=== PATIENT | male | born 1990 | race African-American/Black ===

== ENCOUNTER 2022-01-10 06:38 | Emergency (ER) | payer OTHER, SELFPAY ==
--- NOTE | ~2022-01-10 | XR_ITS ---
EXAMINATION: XR CHEST CLINICAL INFORMATION: Left-sided chest pain. COMPARISON: None TECHNIQUE: AP view of the chest was obtained. FINDINGS: Normal appearance of the cardiomediastinal silhouette. No focal airspace opacities, pleural effusions, or pneumothorax. No acute osseous abnormalities. The visualized upper abdomen is within normal limits. XR/XR chest 1V IMPRESSION: No acute cardiopulmonary findings.
[2022-01-10 06:44] VITALS: BP 134/80; BP 164/105; PULSE 75; PULSE 85; RESP 18; TEMP 37.1; O2SAT 98; BMI 29.0
[2022-01-10 07:11] VITALS: BP 144/91; PULSE 68; RESP 15; TEMP 37.2; O2SAT 99
--- NOTE | 2022-01-10 08:11 | ECG_ITS ---
Test Reason : back pain Blood Pressure : / mmHG Vent. Rate : 063 BPM Atrial Rate : 063 BPM P-R Int : 136 ms QRS Dur : 074 ms QT Int : 398 ms P-R-T Axes : 023 042 -03 degrees QTc Int : 407 ms Normal sinus rhythm ST & T wave abnormality, consider inferior ischemia Abnormal ECG No previous ECGs available Referred By: Mitchell Dejesus Electronically Signed By:Dylan Soto
--- NOTE | 2022-01-10 08:12 | ED_ITS ---
HPI - Back Pain/Injury General Chief Complaint: Back Pain/Injury Stated Complaint: back pain, no injury Time Seen by Provider: 01/10/22 07:47 Source: patient Mode of arrival: EMS Limitations: no limitations History of Present Illness HPI Narrative: 31-year-old male who presents emergency department by ambulance for evaluation of sudden onset of severe back pain. The patient states that he works at a [employer] in [place]. He was sitting at a desk and his computer mouse fell to the floor. 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 He states that he had pain that radiated down both legs which she described as a tingling sensation which was brief and is since resolved. He denied any loss of bowel or bladder control. He states that any time he tries to move his pain is worse. His pain is currently 10/10. Patient states that he has known hypertension but does not have a primary care doctor prescribed antihypertensive medications. He states that yesterday he did experience left-sided chest pain which she describes as a sharp pain he points. He points to his left breast when asked to localize the pain. He states the pain was intermittent and last 5-10 minutes and then resolved, the patient's pain was moderate intensity. He had no other concerning associated symptoms such as lightheadedness, dizziness, neck, jaw, arm pain or back pain. He denied fever, chills, sore throat, cough, shortness of breath, dyspnea on exertion, nausea, vomiting, diarrhea, abdominal pain. He states he has had some slight rhinorrhea over the past several days. He denies using injection drugs. He does smoke marijuana. He also smokes a 3rd of a pack of cigarettes per day times 12 years. Related Data Previous Rx's Medication Instructions Recorded cyclobenzaprine 10 mg tablet 10 mg PO TID PRN #20 tab 01/10/22 lisinopril 10 mg tablet 10 mg PO DAILY 30 Days #30 tab 01/10/22 Allergies Allergy/AdvReac Type Severity Reaction Status Date / Time No Known Allergies Allergy Unverified 05/05/20 19:20 [No Known Allergies*] Review of Systems Review of Systems: Yes all other systems are reviewed and are negative [facility] Past Medical History [facility] Narrative: Past medical history: Hypertension-untreated, asthma. Past surgical history: None. Social history: The patient works out and [employer] in [place]. He smokes 1/3 pack of cigarettes per day times 12 years. He denies alcohol use. He does smoke marijuana. He denies injection drug use. Social History Social History Advance Directives: No Physical Exam Vital Signs: Vital Signs: Last Vital Signs Temp 98.3 F 01/10/22 10:55 Pulse 57 01/10/22 10:55 Resp 13 01/10/22 10:55 BP 141/84 H 01/10/22 10:55 Pulse Ox 99 01/10/22 10:55 BMI result Body Mass Index 29.0 Const: Other: Awake, alert, male patient, very pleasant and cooperative, answers all questions appropriately, he does not appear to be in distress if he is lying still but any movement gives him severe pain in his midback. General: cooperative and no acute distress Orientation/consciousness: oriented to person and oriented to place Limitations: no limitations HEENT: Head: Yes normal to inspection, Yes normocephalic and Yes atraumatic Ears: external ears normal General nose exam: Normal external nose present Face and sinus: Yes normal facial exam Mouth: Normal oral and palatal mucosa present Throat: Yes posterior oropharynx normal Eyes: General: appearance normal, both eyes and all related structures Pupils: Equal, round and reactive pupils present Neck: Neck: Yes normal visual inspection, Yes no lymphadenopathy, Yes trachea midline and Yes supple Chest: Chest palpation & inspection: normal inspection of the chest and normal palpation of entire chest wall Resp: Effort & Inspection: normal respiratory effort and able to speak in complete sentences Auscultation: clear to auscultation bilaterally Cardio: Rate: regular rate Rhythm: regular rhythm Heart sounds: S1 normal heart sound present, S2 normal heart sound present and no murmurs GI: Inspection: Yes normal to inspection Palpation (GI): Soft to palpation, nontender and no guarding Auscultation: normal bowel sounds Back/Spine/Pelvis: Other: The patient has spasm of the bilateral paraspinal muscles and his thoracic back area, there is no point tenderness over the vertebrae, he has negative straight leg raises bilaterally, there is no increased warmth or lesions to the skin of his back pain Skin: General skin exam: no rashes or lesions noted Neuro: General: oriented to person and oriented to place Cranial nerves: Yes CN's II-XII intact bilaterally and Yes Equal, round and reactive pupils present Cognition (Neuro): normal cognition Motor exam (neuro): 5/5 motor strength present throughout Extrem: General: Yes normal to inspection Psych: Appearance: grossly normal Speech and movement: Normal speech and movement present Affect: normal affect Attitude: cooperative Thought process: Normal thought process present Thought content: Normal thought jose nt present Course Course Course Narrative: 31-year-old male who presents emergency department for evaluation of sudden onset of back pain that occurred at work when he was bending 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 The patient's pain is 10/10. The patient's physical examination did reveal significant tenderness and spasm of his thoracic paraspinal muscles. The patient also noted left-sided chest pain that he had yesterday. He does have a history of hypertension which is untreated he is a smoker. I did order a laboratory evaluation to include CBC, CMP and EKG. I will also obtain a chest x-ray to rule out pneumothorax. The patient's vital signs did reveal an elevated blood pressure otherwise were unremarkable. The patient has not had any systemic signs infectious illness. He has not had inj ection drug user. At this time I think that his back pain is secondary to muscle spasm. He was treated with Toradol 30 mg IV and Flexeril 10 mg orally. 1112: The patient refused an IV so he was given Toradol 60 mg IM. He states that he is feeling slightly better he does not want any more pain medications at this time. The patient's 12 EKG did reveal inverted T-wave in lead 3 and AVF with no ST segment elevation or depression otherwise was unremarkable. Laboratory evaluation was unremarkable. Chest x-ray was normal. The patient was discharged home and advised to take Tylenol, ibuprofen and was prescribed Flexeril 1st pain. He was given printed and verbal instructions and discharged home. Patient states that he has known hypertension but has not been on medications and is requesting treatment therefore I did start him on lisinopril 10 mg once a day. MDM - Back Pain/Injury Lab Data Result diagrams: 01/10/22 08:37 05/25/22 08:37 Labs: Lab Results 01/10/22 01/10/22 Range/Units 08:37 08:37 WBC 7.5 (4.8-10.8) X10*3/uL RBC 5.51 (4.60-5.80) X10*6/uL Hgb 14.3 (14.0-18.0) g/dl Hct 46.1 (42.0-52.0) % MCV 83.7 (80.0-98.0) fL MCH 26.0 L (27.0-33.0) pg MCHC 31.0 (31.0-36.0) g/dl RDW 14.2 (11.0-16.0) % Plt Count 232 (160-400) X10*3/uL MPV 9.7 (9.4-12.4) fL Immature Gran % (Auto) 0.5 H (0.0-0.4) % Neut % (Auto) 50.1 (45-73) % Lymph % (Auto) 35.9 (20-40) % [place] % (Auto) 10.5 (2-11) % Eos % (Auto) 2.7 (0-4) % Baso % (Auto) 0.3 (0-2) % Lymph # (Auto) 2.7 (1.2-4.9) X10*3/uL [place] # (Auto) 0.8 (0.1-1.2) X10*3/uL Eos # (Auto) 0.2 (0.0-0.4) X10*3/uL Baso # (Auto) 0.0 (0.0-0.2) X10*3/uL Abs Immat Gran (auto) 0.04 H (0.00-0.03) X10*3/uL Absolute Neuts (auto) 3.8 (2.0-8.3) x10*3/uL Absolute Nucleated RBC 0.000 (0.0-0.012) X10*3/uL Nucleated RBC % (auto) 0.0 (0.0-0.2) /100WBC Sodium 142 (135-145) mmol/L Potassium 4.7 (3.3-5.1) mmol/L Chloride 107 (96-108) mmol/L Carbon Dioxide 28 (22-29) mmol/L Anion Gap 12 (12-20) BUN 7 L (9-16) mg/dL Creatinine 0.82 (0.5-1.4) mg/dL Estim Creat Clear Calc 159.2 Estimated GFR > 60 Random Glucose 112 (60-115) mg/dL Calcium 9.8 (8.4-10.2) mg/dL Total Bilirubin 0.4 (0.0-1.0) mg/dL AST 20 (5-37) U/L ALT 31 (0-40) U/L Alkaline Phosphatase 61 (39-117) U/L Total Protein 7.2 (6.5-8.0) g/dL Albumin 4.4 (3.5-5.0) g/dL Lipase 28 (8-78) U/L ECG Data Attestation: I personally reviewed and interpreted this ECG as follows: Interpretation: 0856: Normal sinus rhythm rate of 63, normal QRS duration, ME interval and QTC interval, inverted T-waves lead 3 and AVF, J-point elevation but no clear ST segment elevation, no PACs, no PVCs. No previous EKG for comparison. Discharge Plan Discharge Clinical Impression: Chest pain Qualifiers: Chest pain type: unspecified Qualified Code(s): R07.9 - Chest pain, unspecified Hypertension Qualifiers: Hypertension type: primary hypertension Qualified Code(s): I10 - Essential (primary) hypertension Acute thoracic myofascial strain Qualifiers: Encounter type: initial encounter Qualified Code(s): S29.019A - Strain of muscle and tendon of unspecified wall of thorax, initial encounter Patient Disposition: Home, Self-Care Instructions: Acute Low Back Pain (ED) Additional Instructions: Your blood work was normal. Your EKG did not reveal evidence for heart attack as the cause of your chest pain. Your chest x-ray was normal. The back pain is most likely caused by muscle strain and spasm of your back muscles. Take ibuprofen 200 mg pills, 3 pills every 6 hours as needed for pain. Take Tylenol (acetaminophen) 500 mg pills, 2 pills every 4-6 hours as needed for pain. Take Flexeril (cyclobenzaprine) 10 mg pills, 1 pill every 6-8 hours as needed for pain or spasm. This medication will make you sleepy. Do not drive or work while taking this medication. I am starting you on lisinopril 10 mg once a day. This is a medication for your high blood pressure Buy a blood pressure cough so that you can check your blood pressure at home. Check your blood pressures in the morning on Mondays, Wednesdays and Fridays. Write down these blood pressures so that you can review them with your doctor. Once we start a blood pressure medication it will take 4-6 weeks your blood pressure to get better and sometimes your doctor will need to increase your blood pressure medicine or add another blood pressure medicine to your treatment Please see the work note Call the doctor referral line to get a primary care doctor. Prescriptions: New cyclobenzaprine 10 mg tablet 10 mg PO TID PRN (Reason: muscle pain or spasm) Qty: 20 0RF lisinopril 10 mg tablet 10 mg PO DAILY 30 Days Qty: 30 0RF Stand Alone Forms: Work/School Release
[2022-01-10 08:32] VITALS: BP 161/102; PULSE 73; RESP 20; TEMP 36.9; O2SAT 99
[2022-01-10 08:41] LABS: MANUAL DIFF FLAG NO
[2022-01-10 08:42] LABS: Basophils Percent Auto 0.3 % (0-2); Eosinophils Absolute Auto 0.2 X10*3/uL (0.0-0.4); Eosinophils Percent Auto 2.7 % (0-4); Hematocrit 46.1 % (42.0-52.0); Hemoglobin 14.3 g/dl (14.0-18.0); Imm Gran Abs Auto 0.04 X10*3/uL (0.00-0.03); Imm Gran Pct Auto 0.5 % (0.0-0.4); Lymphocytes Absolute Auto 2.7 X10*3/uL (1.2-4.9); Lymphocytes Percent Auto 35.9 % (20-40); Mean Corpuscular Volume 83.7 fL (80.0-98.0); Mean Platelet Volume 9.7 fL (9.4-12.4); Monocytes Absolute Auto 0.8 X10*3/uL (0.1-1.2); Monocytes Percent Auto 10.5 % (2-11); Neutrophils Absolute Auto 3.8 x10*3/uL (2.0-8.3); Neutrophils Percent Auto 50.1 % (45-73); Platelet Count 232 X10*3/uL (160-400); Red Blood Count 5.51 X10*6/uL (4.60-5.80); Red Cell Distribution Width 14.2 % (11.0-16.0); White Blood Count 7.5 X10*3/uL (4.8-10.8)
[2022-01-10 09:08] LABS: Alanine Aminotransferase 31 U/L (0-40); Albumin Level 4.4 g/dL (3.5-5.0); Alkaline Phosphatase 61 U/L (39-117); Anion Gap 12 (12-20); Aspartate Amino Transferase 20 U/L (5-37); Bilirubin Total 0.4 mg/dL (0.0-1.0); Blood Urea Nitrogen 7 mg/dL (9-16); Calcium 9.8 mg/dL (8.4-10.2); Carbon Dioxide 28 mmol/L (22-29); Chloride 107 mmol/L (96-108); Creatinine Clr Calc Pharmacy 159.2; Estimated Glomerular Filt Rate > 60; Glucose Random 112 mg/dL (60-115); Lipase 28 U/L (8-78); Potassium 4.7 mmol/L (3.3-5.1); Sodium 142 mmol/L (135-145); Total Protein 7.2 g/dL (6.5-8.0)
[2022-01-10] MEDS: Cyclobenzaprine HCl 10 MG TABLET PO (09:13)
[2022-01-10] MEDS: Ketorolac Tromethamine 60 MG/2 ML VIAL IM (10:01)
[2022-01-10 10:55] VITALS: BP 141/84; PULSE 57; RESP 13; TEMP 36.8; O2SAT 99
== END 2022-01-10 11:40 | disposition home or self-care (01) ==
PROVIDERS: Emergency Provider Emergency Medicine Emergency Medical Services
DX: M54.50 Low back pain, unspecified (principal); I10 Essential (primary) hypertension; R07.9 Chest pain, unspecified; Z79.899 Other long term (current) drug therapy
CPT/HCPCS: 36415; 71045; 80053; 83690; 85025; 93005; 96372; 96374; 99283; 99284; J1885

== ENCOUNTER 2022-01-19 06:28 | Emergency (ER) | payer OTHER, SELFPAY ==
[2022-01-19 06:33] VITALS: PULSE 83; RESP 14; TEMP 37.1; O2SAT 98; BMI 28.3
--- NOTE | 2022-01-19 08:31 | ED.BACK ---
HPI - Back Pain/Injury General Chief Complaint: Back Pain/Injury Stated Complaint: severe back pain (fall 01/10) Time Seen by Provider: 01/19/22 07:58 Source: patient Mode of arrival: ambulatory History of Present Illness HPI Narrative: 31-year-old male without significant past medical history states he injured his back at work on 01/10 and was seen here in the ER given Flexeril but states that the pain really has not improved and he does like this way that the medication makes him feel. He denies any groin numbness or weakness/tingling/numbness into either lower extremity, denies any fevers or chills and denies any history of IVDA. Related Data Previous Rx's Medication Instructions Recorded cyclobenzaprine 10 mg tablet 10 mg PO TID PRN #20 tab 01/10/22 lisinopril 10 mg tablet 10 mg PO DAILY 30 Days #30 tab 01/10/22 ketorolac 10 mg tablet 10 mg PO Q6H PRN 5 Days #20 tab 01/19/22 Allergies Allergy/AdvReac Type Severity Reaction Status Date / Time No Known Allergies Allergy Unverified 05/05/20 19:20 [No Known Allergies*] Review of Systems Review of Systems: Pertinent positives and negatives as stated in HPI 10 point review of systems is otherwise negative. PMFSH Past Medical History Source: nursing notes reviewed Social History Social History Advance Directives: No Advance Directives Information Provided: Yes Physical Exam Vital Signs: Vital Signs: Last Vital Signs Temp 98.8 F 01/19/22 06:33 Pulse 83 01/19/22 06:33 Resp 14 01/19/22 06:33 Pulse Ox 98 01/19/22 06:33 BMI result Body Mass Index 28.3 VITAL SIGNS: Reviewed. GENERAL: Well developed, well nourished, in no acute distress. HEAD: Normocephalic/atraumatic EYES: PERRLA, EOMI EARS: Ext canals without abnormality OROPHARYNX: no oral lesions noted, posterior pharynx clear LUNGS: Normal breath sounds. No adventitious sounds or accessory muscle use. SpO2<98> CARDIOVASCULAR: Regular rate and rhythm without noted murmurs ABDOMEN: Soft, non-tender, non-distended with bowel sounds. BACK: No midline vertebral tenderness, no muscle spasms limb noted, no erythema or induration. MUSCULOSKELETAL: No tenderness, deformities, or effusions noted on gross inspection. EXTREMITIES: No cyanosis, clubbing or edema. SKIN: Inspection of the skin reveals no rashes NEUROLOGIC: Alert and oriented x 4. Strength and sensation to light touch were grossly intact x 4. Course Course Course Narrative: 31-year-old male with history and clinical presentation consistent with back pain and inadequate pain control, needs to be seen by a primary care provider and/or sports Medicine Discharge Plan Discharge Clinical Impression: Strain of lumbar region Patient Disposition: Home, Self-Care Instructions: Back Pain (ED), Lower Back Exercises (ED) Additional Instructions: 1. Tylenol 1000 mg, orally, every 6 hours as needed for pain control. Do not exceed 4000 mg within 24 hours. 2. Lidocaine patch, apply to area of maximal tenderness as directed on the outside packaging. 3. You need to follow-up with your Employee Health, [facility], for further re-evaluation. Return to the ER for worsening symptoms. Prescriptions: New ketorolac 10 mg tablet 10 mg PO Q6H PRN (Reason: pain) 5 Days Qty: 20 0RF Rx Instructions: Patient received Toradol in the emergency room. No Action cyclobenzaprine 10 mg tablet 10 mg PO TID PRN (Reason: muscle pain or spasm) Qty: 20 0RF lisinopril 10 mg tablet 10 mg PO DAILY 30 Days Qty: 30 0RF Referrals: [facility] [Outside] Stand Alone Forms: Work/School Release
[2022-01-19] MEDS: Lidocaine 4 % Patch ADH..PATCH 1 PATCH TRANSDERMA (08:57)
[2022-01-19] MEDS: Acetaminophen 325 MG TABLET 975 MG PO (08:57)
[2022-01-19] MEDS: Ketorolac Tromethamine 15 MG/ML VIAL IM (08:57)
== END 2022-01-19 09:12 | disposition home or self-care (01) ==
PROVIDERS: Emergency Provider Student in an Organized Health Care Education/Training Program
DX: S39.012A Strain of muscle, fascia and tendon of lower back, initial encounter (principal); X58.XXXA Exposure to other specified factors, initial encounter; Y93.9 Activity, unspecified; Y92.9 Unspecified place or not applicable; Y99.0 Civilian activity done for income or pay
CPT/HCPCS: 96372; 99282; 99284; J1885

== ENCOUNTER → 2022-01-22 09:46 | Outpatient (BNVA) | payer OTHER, SELFPAY | PROVIDERS: Visit Provider Physician Assistant Medical | DX: Z13.89 Encounter for screening for other disorder (principal) ==

== ENCOUNTER 2022-01-22 10:46 | Emergency (ER) | payer OTHER, SELFPAY ==
--- NOTE | ~2022-01-22 | CT_ITS ---
EXAMINATION: CT CHEST WITHOUT CONTRAST CLINICAL INFORMATION: Continued low back pain. COMPARISON: Chest x-ray 01/10/2022 TECHNIQUE: Multidetector volumetric CT imaging of the chest was done. Axial MIP volume rendering provided. Sagittal and coronal reformatted images were obtained. This CT examination was performed using dose optimization techniques as appropriate, variously including the following: *Automated exposure control *Adjustment of mA and/or kV according to patient size (this includes techniques or standardized protocols for targeted exams where dose is matched to indication/reason for exam; i.e. extremities or head) *Use of iterative reconstruction technique DLP: 391 mGy-cm FINDINGS: CUT OUT OPERATOR: Unremarkable. LUNGS: The lungs are well-expanded and clear of acute pneumonic process.. There are punctate 2 mm nodules adjacent to major fissure in the left upper lobe axial image 19/4, 17/4, left superior major fissure axial image 184/6, 3 and a nodule right lower lobe superior segment axial image 281/6, 3 and a nodule right lower lobe axial image 325 6 and 2 minute nodule left lower lobe axial image 327/6, 1 mm nodule left lower lobe posterior basal segment image 328/6. MEDIASTINUM: The thyroid lobes are symmetric and normal. The central trachea and the bronchi widely patent. The heart size and the great vessels are normal caliber. There is no pericardial effusion. PLEURA: There is no pleural effusion. No pleural mass or thickening. AXILLA: No lymphadenopathy. UPPER ABDOMEN: Visualized liver, spleen, pancreas and bilateral adrenal glands unremarkable. No radiopaque gallstones or wall thickening. OSSEOUS STRUCTURES: There is no aggressive lytic or sclerotic process. No compression fracture. The spinal canal is patent throughout dorsal spine. CT/CT chest wo con IMPRESSION: Unremarkable examination. Fleischner guidelines were followed.
[2022-01-22 10:47] VITALS: BP 152/104; PULSE 76; RESP 16; TEMP 36.6; O2SAT 100; BMI 28.3
--- NOTE | 2022-01-22 11:26 | ED.GENADULT ---
HPI - General Adult General Chief complaint: Recheck/Abnormal Lab/Rx Stated complaint: BACK, CHEST PAIN Time Seen by Provider: 01/22/22 11:21 Source: patient Mode of arrival: ambulatory Limitations: no limitations History of Present Illness HPI narrative: Patient is a 31 year old male presenting to the emergency department today with back pain. Patient states that he was following up with [facility] for [facility] when they recommended he come get a scan of his chest to check his aorta due to having high blood pressure and not taking his blood pressure medication. Patient denies any dizziness, lightheadedness, abdominal pain, nausea, vomiting, fever, chills, blurry vision, double vision, loss of vision, chest pain, difficulty breathing, shortness of breath, night sweats, pain with urination, increased urinary frequency, increased urinary urgency, blood in his urine or stool, syncope or a near syncopal episode, recent trauma or falls, bowel incontinence, bladder incontinence, bowel retention, bladder retention, or any other complaints at this time. Onset (ago): day(s) Location: back Radiation: non-radiation Severity: mild Severity scale (1-10): 2 Quality: dull Pain Consistency: intermittent Relieving factors: none Exacerbating factors: none Associated symptoms: denies other symptoms Treatments prior to arrival: none Related Data Previous Rx's Medication Instructions Recorded cyclobenzaprine 10 mg tablet 10 mg PO TID PRN #20 tab 01/10/22 lisinopril 10 mg tablet 10 mg PO DAILY 30 Days #30 tab 01/10/22 ketorolac 10 mg tablet 10 mg PO Q6H PRN 5 Days #20 tab 01/19/22 Allergies Allergy/AdvReac Type Severity Reaction Status Date / Time No Known Allergies Allergy Unverified 05/05/20 19:20 [No Known Allergies*] Review of Systems Constitutional: Constitutional: Reports no additional constitutional complaints, Denies chills, Denies fever(s) and Denies night sweats Eyes: Eyes: Reports no additional eye complaints, Denies blurry vision, Denies change in vision, Denies diplopia, Denies eye discharge, Denies loss of vision and Denies eye pain ENT: Denies dizziness Cardiovascular: Cardiovascular: Reports no additional cardiovascular complaints, Denies chest pain, Denies lightheadedness, Denies Loss of Consciousness and Denies dyspnea Respiratory: Respiratory: Reports no additional respiratory complaints and Denies dyspnea Gastrointestinal: Gastrointestinal: Reports no additional gastrointestinal complaints, Denies abdominal pain, Denies melena, Denies hematochezia, Denies change in bowel habits and Denies change in stool character Genitourinary: Genitourinary: Reports no additional male genitourinary complaints, Denies hematuria, Denies oliguria, Denies difficulty urinating, Denies dysuria, Denies urinary frequency, Denies urinary hesitancy, Denies urinary incontinence and Denies urinary urgency Musculoskeletal: Musculoskeletal: Reports no additional musculoskeletal complaints, Reports back pain, Denies numbness and Denies tingling Neurologic: Denies dizziness, Denies loss of vision, Denies numbness and Denies tingling Psychiatric: Psychiatric: Reports no additional psychiatric complaints Endocrine: Endocrine: Reports no additional endocrine complaints Hematologic/Lymphatic: Hematologic/Lymphatic: Reports no additional hematologic/lymphatic complaints Allergic/Immunologic: Allergic/Immunologic: Reports no additional allergic/immunologic complaints [facility] Past Medical History Attestation statement: The following information was validated with the patient. Source: old records reviewed Social History Social History Advance Directives: No Advance Directives Information Provided: Yes Physical Exam ED Vital Signs: Vital Signs - 24 hr 01/22/22 10:47 Temperature 97.8 F Pulse Rate 76 Respiratory Rate 16 Blood Pressure 152/104 H Pulse Oximetry 100 BMI result Body Mass Index 28.3 Const General: cooperative, no acute distress, alert and awake Nutritional Appearance: well nourished Orientation/consciousness: patient oriented x3 Limitations: no limitations HENSC Head: Yes normal to inspection and Yes atraumatic Ears: hearing grossly normal bilaterally and external ears normal General nose exam: Normal external nose present, no nasal discharge noted and no epistaxis Face and sinus: Yes normal facial exam, No abrasion and No laceration Mouth: Normal oral and palatal mucosa present, no drooling and no muffled voice Eyes General: appearance normal, both eyes and all related structures Periorbital: periorbital findings normal Eyelids: Yes eyelids normal Conjunctivae: conjunctivae normal Pupils: Equal, round and reactive pupils present EOM: EOMs intact bilaterally Neck Neck: Yes normal visual inspection, Yes full ROM and Yes no lymphadenopathy Chest Chest palpation & inspection: normal inspection of the chest Resp Effort & Inspection: normal respiratory effort and able to speak in complete sentences Auscultation: clear to auscultation bilaterally Cardio Rate: regular rate Rhythm: regular rhythm GI Inspection: Yes normal to inspection General: Yes no CVA tenderness Back/Spine/Pelvis Back: no CVA tenderness Cervical Spine: normal cervical lordosis and cervical ROM normal Thoracic/Lumbar Spine: thoracic and lumbar spine normal to inspection and thoraco-lumbar ROM normal Pelvis: no pain with anterior-posterior compression Neuro General: patient oriented x3 and moves all extremities Cranial nerves: Yes Equal, round and reactive pupils present Cognition (Neuro): normal cognition Motor exam (neuro): 5/5 motor strength present throughout Sensory Exam: Normal double simultaneous stimulation for sensation Coordination: vesbap-ef-pzzi test normal Extrem General: Yes normal to inspection, Yes full ROM and Yes capillary refill normal Psych Appearance: grossly normal Mental Status: mental status grossly normal Affect: normal affect Attitude: cooperative Thought process: Normal thought process present Thought content: Normal thought content present Insight: Good insight present (Psych) Medical Decision Making MDM Narrative Medical decision making narrative: Patient is a 31 year old male presenting to the emergency department today with mid back pain. Patient's physical exam was unremarkable. Patient's chest CT showed no acute process. I explained my physical exam findings as well as all test results to the patient. I answered all questions asked by the patient. I stressed the importance of the patient taking his medication as prescribed. I stressed the importance of the patient following up with his primary care provider, the [facility] provider, and an orthopedic provider. I stressed the importance of the patient returning to the emergency department immediately if his symptoms were to worsen or if he were to develop any dizziness, shortness of breath, difficulty breathing, chest pain, blurry vision, loss of vision, nausea, vomiting, abdominal pain, fever, chills, back pain, or any other complaints. Patient verbalized agreement and understanding with this treatment plan and discharge. Differential Diagnosis Differential Diagnosis: back pain, back strain, back injury Medical Records Medical records reviewed: Yes I reviewed the patient's medical records. Imaging Data CT scan - chest: Attestation: I personally reviewed and interpreted this imaging study as follows: My impression: No acute process. Radiologist's impression: EXAMINATION: CT CHEST WITHOUT CONTRAST CLINICAL INFORMATION: Continued low back pain. COMPARISON: Chest x-ray 01/10/2022 TECHNIQUE: Multidetector volumetric CT imaging of the chest was done. Axial MIP volume rendering provided. Sagittal and coronal reformatted images were obtained.? This CT examination was performed using dose optimization techniques as appropriate, variously including the following: *Automated exposure control *Adjustment of mA and/or kV according to patient size (this includes techniques or standardized protocols for targeted exams where dose is matched to indication/reason for exam; i.e. extremities or head) *Use of iterative reconstruction technique DLP: 391 mGy-cm FINDINGS: BODILY INJURY ADJUSTER: Unremarkable. LUNGS: The lungs are well-expanded and clear of acute pneumonic process.. There are punctate 2 mm nodules adjacent to major fissure in the left upper lobe axial image 19/4, 17/4, left superior major fissure axial image 184/6, 3 and a nodule right lower lobe superior segment axial image 281/6, 3 and a nodule right lower lobe axial image 325 6 and 2 minute nodule left lower lobe axial image 327/6, 1 mm nodule left lower lobe posterior basal segment image 328/6.? MEDIASTINUM: The thyroid lobes are symmetric and normal. The central trachea and the bronchi widely patent. The heart size and the great vessels are normal caliber. There is no pericardial effusion.? PLEURA: There is no pleural effusion. No pleural mass or thickening.? AXILLA: No lymphadenopathy.? UPPER ABDOMEN: Visualized liver, spleen, pancreas and bilateral adrenal glands unremarkable. No radiopaque gallstones or wall thickening.? OSSEOUS STRUCTURES: There is no aggressive lytic or sclerotic process. No compression fracture. The spinal canal is patent throughout dorsal spine.? CT/CT chest wo con IMPRESSION: Unremarkable examination.? ? Fleischner guidelines were followed. Dictated By: José Antonio Cortes MD Signed By: Electronically signed by José Antonio Cortes MD 01/22/22 7862 Discharge Plan Discharge Clinical Impression: Back pain Patient Disposition: Home, Self-Care Instructions: Back Pain (ED) Additional Instructions: Follow up with your primary care provider. Return to the emergency department immediately if your symptoms worsen or if you develop any dizziness, shortness of breath, difficulty breathing, chest pain, blurry vision, loss of vision, nausea, vomiting, abdominal pain, fever, chills, back pain, or any other complaints. Prescriptions: No Action cyclobenzaprine 10 mg tablet 10 mg PO TID PRN (Reason: muscle pain or spasm) Qty: 20 0RF lisinopril 10 mg tablet 10 mg PO DAILY 30 Days Qty: 30 0RF ketorolac 10 mg tablet 10 mg PO Q6H PRN (Reason: pain) 5 Days Qty: 20 0RF Rx Instructions: Patient received Toradol in the emergency room. Referrals: [facility] [Provider Group] Stand Alone Forms: Work/School Release Print Language: Telugu
== END 2022-01-22 14:12 | disposition home or self-care (01) ==
PROVIDERS: Emergency Provider Student in an Organized Health Care Education/Training Program
DX: Z04.2 Encounter for examination and observation following work accident (principal); M54.9 Dorsalgia, unspecified
CPT/HCPCS: 71250; 99282; 99284

== ENCOUNTER → 2022-01-23 07:43 | Outpatient (BNVA) | payer OTHER, SELFPAY | PROVIDERS: Visit Provider Internal Medicine | DX: M54.9 Dorsalgia, unspecified (principal) | CPT/HCPCS: 99214 ==

== ENCOUNTER → 2022-01-30 08:52 | Outpatient (BNVA) | payer OTHER, SELFPAY | PROVIDERS: Visit Provider Internal Medicine | DX: M54.9 Dorsalgia, unspecified (principal) | CPT/HCPCS: 99213 ==

== ENCOUNTER → 2022-02-02 12:42 | Outpatient (BNVA) | payer OTHER, SELFPAY | PROVIDERS: Visit Provider Internal Medicine | DX: M54.9 Dorsalgia, unspecified (principal) | CPT/HCPCS: 99213 ==

== ENCOUNTER → 2022-02-12 08:01 | Outpatient (BNVA) | payer OTHER, SELFPAY | PROVIDERS: Visit Provider Internal Medicine | DX: M54.9 Dorsalgia, unspecified (principal); M54.16 Radiculopathy, lumbar region | CPT/HCPCS: 99213 ==

== ENCOUNTER → 2022-02-20 11:45 | Outpatient (BNVA) | payer OTHER, SELFPAY | PROVIDERS: Visit Provider Internal Medicine | DX: M54.50 Low back pain, unspecified (principal) | CPT/HCPCS: 99213 ==

== ENCOUNTER → 2022-03-06 10:40 | Outpatient (BNVA) | payer OTHER, SELFPAY | PROVIDERS: Visit Provider Internal Medicine | DX: S39.012D Strain of muscle, fascia and tendon of lower back, subsequent encounter (principal); X58.XXXD Exposure to other specified factors, subsequent encounter | CPT/HCPCS: 99213 ==

== ENCOUNTER → 2022-04-02 10:04 | Outpatient (BNVA) | payer OTHER, SELFPAY | PROVIDERS: Visit Provider Internal Medicine | DX: S39.012D Strain of muscle, fascia and tendon of lower back, subsequent encounter (principal); X58.XXXD Exposure to other specified factors, subsequent encounter | CPT/HCPCS: 99213 ==

== ENCOUNTER → 2022-04-16 08:56 | Outpatient (BNVA) | payer OTHER, SELFPAY | PROVIDERS: Visit Provider Internal Medicine | DX: S39.012D Strain of muscle, fascia and tendon of lower back, subsequent encounter (principal); X58.XXXD Exposure to other specified factors, subsequent encounter | CPT/HCPCS: 99213 ==

== ENCOUNTER → 2022-05-14 09:51 | Outpatient (BNVA) | payer OTHER, SELFPAY | PROVIDERS: Visit Provider Internal Medicine | DX: S39.012D Strain of muscle, fascia and tendon of lower back, subsequent encounter (principal); X58.XXXD Exposure to other specified factors, subsequent encounter | CPT/HCPCS: 99213 ==

== ENCOUNTER → 2022-06-12 13:57 | Outpatient (BNVA) | payer OTHER, SELFPAY | PROVIDERS: Visit Provider Internal Medicine | DX: M54.50 Low back pain, unspecified (principal); N50.811 Right testicular pain; N50.812 Left testicular pain | CPT/HCPCS: 99213 ==

== ENCOUNTER → 2022-07-03 13:06 | Outpatient (BNVA) | payer OTHER, SELFPAY | PROVIDERS: Visit Provider Internal Medicine | DX: M54.50 Low back pain, unspecified (principal) | CPT/HCPCS: 99213 ==

== ENCOUNTER → 2022-07-17 11:43 | Outpatient (BNVA) | payer OTHER, SELFPAY | PROVIDERS: Visit Provider Internal Medicine | DX: M54.50 Low back pain, unspecified (principal) | CPT/HCPCS: 99213 ==

== ENCOUNTER → 2022-08-16 12:54 | Outpatient (BNVA) | payer OTHER, SELFPAY | PROVIDERS: Visit Provider Internal Medicine | DX: M54.50 Low back pain, unspecified (principal) | CPT/HCPCS: 99213 ==

== ENCOUNTER → 2022-09-18 08:53 | Outpatient (BNVA) | payer OTHER, SELFPAY | PROVIDERS: Visit Provider Internal Medicine | DX: Z13.89 Encounter for screening for other disorder (principal) ==

== ENCOUNTER 2022-09-18 09:28 | Emergency (ER) | payer OTHER, SELFPAY ==
[2022-09-18 10:33] VITALS: BP 149/113; PULSE 84; RESP 16; TEMP 36.1; O2SAT 99; BMI 29.8
[2022-09-18 11:36] LABS: MANUAL DIFF FLAG NO
[2022-09-18 11:38] LABS: Basophils Percent Auto 0.3 % (0-2); Eosinophils Absolute Auto 0.2 X10*3/uL (0.0-0.4); Eosinophils Percent Auto 2.2 % (0-4); Hematocrit 51.6 % (42.0-52.0); Hemoglobin 16.5 g/dl (14.0-18.0); Imm Gran Abs Auto 0.04 X10*3/uL (0.00-0.03); Imm Gran Pct Auto 0.6 % (0.0-0.4); Lymphocytes Percent Auto 43.8 % (20-40); Mean Corpuscular Hemoglobin 25.8 pg (27.0-33.0); Mean Corpuscular Volume 80.6 fL (80.0-98.0); Mean Platelet Volume 9.4 fL (9.4-12.4); Monocytes Absolute Auto 0.7 X10*3/uL (0.1-1.2); Monocytes Percent Auto 9.6 % (2-11); Neutrophils Absolute Auto 2.9 x10*3/uL (2.0-8.3); Neutrophils Percent Auto 43.5 % (45-73); Platelet Count 260 X10*3/uL (160-400); White Blood Count 6.8 X10*3/uL (4.8-10.8)
[2022-09-18 11:59] LABS: Alanine Aminotransferase 35 U/L (0-40); Alkaline Phosphatase 70 U/L (39-117); Anion Gap 13 (12-20); Aspartate Amino Transferase 23 U/L (5-37); Bilirubin Total 0.8 mg/dL (0.0-1.0); Blood Urea Nitrogen 9 mg/dL (9-16); C Reactive Protein 0.79 mg/dL (< or = 0.50); Carbon Dioxide 27 mmol/L (22-29); Chloride 106 mmol/L (96-108); Creatinine Clr Calc Pharmacy 148.8; Estimated Glomerular Filt Rate > 60; Glucose Random 97 mg/dL (60-115); Potassium 4.4 mmol/L (3.3-5.1); Sodium 142 mmol/L (135-145); Total Protein 7.9 g/dL (6.5-8.0)
[2022-09-18 12:24] LABS: Erythrocyte Sedimentation Rate 2 MM/HR (0-15)
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
== END 2022-09-18 13:14 | disposition home or self-care (01) ==
PROVIDERS: Nurse Practitioner Family; Emergency Provider Emergency Medicine
DX: Z04.2 Encounter for examination and observation following work accident (principal); M54.41 Lumbago with sciatica, right side
CPT/HCPCS: 36415; 80053; 85025; 85652; 86140; 99282; 99283

== ENCOUNTER → 2022-09-21 12:57 | Outpatient (BNVA) | payer OTHER, SELFPAY | PROVIDERS: Visit Provider Internal Medicine | DX: M54.41 Lumbago with sciatica, right side (principal) | CPT/HCPCS: 99213 ==

== ENCOUNTER → 2022-10-09 11:02 | Outpatient (BNVA) | payer OTHER, SELFPAY | PROVIDERS: Visit Provider Internal Medicine | DX: M54.41 Lumbago with sciatica, right side (principal) | CPT/HCPCS: 99213 ==

== ENCOUNTER → 2022-10-23 08:56 | Outpatient (BNVA) | payer OTHER, SELFPAY | PROVIDERS: Visit Provider Internal Medicine | DX: M54.50 Low back pain, unspecified (principal); M54.16 Radiculopathy, lumbar region | CPT/HCPCS: 99213 ==

== ENCOUNTER → 2022-11-06 08:57 | Outpatient (BNVA) | payer OTHER, SELFPAY | PROVIDERS: Visit Provider Internal Medicine | DX: M54.50 Low back pain, unspecified (principal) | CPT/HCPCS: 99213 ==

== ENCOUNTER 2022-12-12 13:45 | Outpatient (REF) | payer OTHER, SELFPAY ==
--- NOTE | ~2022-12-12 | MR_ITS ---
EXAMINATION: MR LUMBAR SPINE WITHOUT CONTRAST CLINICAL INFORMATION: Strain, persistent low back pain to right buttock. COMPARISON: There are no prior studies available for comparison. TECHNIQUE: MRI of the lumbar spine was obtained using routine sequences without contrast. FINDINGS: VERTEBRAL BODIES AND PARASPINAL STRUCTURES: There is anatomic alignment of the vertebral bodies. There is vertebral disc height with loss of signal from the discs at L2-L3 and L5-S1. Vertebral bodies of normal height and contour no fractures are demonstrated. Overall, marrow signal is homogenous. The visualized retroperitoneal and pelvic structures are unremarkable. CONUS MEDULLARIS AND CAUDA EQUINA: Normal, terminating at the level of L1. The lower thoracic spinal cord appears normal. The cauda equina nerve roots and filum terminale appear normal. SPINAL LEVELS: L1-L2: The facet joints appear normal bilaterally. Disc contour is normal. There is no central stenosis or foraminal narrowing. L2-L3: The facet joints appear normal. There is a small left paracentral disc protrusion without mass effect on the thecal sac and there is no central stenosis or foraminal narrowing. L3-L4: There is moderate left and mild right facet arthropathy with ligamenta flava hypertrophy. Posterior disc contour is normal. There is no central stenosis or foraminal narrowing. L4-L5: There is mild to moderate bilateral facet arthropathy. There is a mild diffuse disc bulge but there is no central stenosis and the neural foramina are patent bilaterally. L5-S1: There is mild to moderate bilateral facet arthropathy. There is a central and right paracentral disc protrusion with subligamentous extrusion behind the bodies of L5 and S1 with distortion the ventral thecal sac a small extruded component also extends into the left subarticular recess with impingement on the traversing left S1 nerve root. There are small inferior foraminal disc protrusions without definite exiting nerve root impingement. There is mild to moderate central stenosis. MR/MR lumbar spine wo con IMPRESSION: 1. There is a central and right paracentral disc protrusion/extrusion at L5-S1. A small extruded component is noted in the left subarticular recess with impingement on the traversing left S1 nerve root. There is mild to moderate central stenosis. 2. Facet arthropathic changes and spondylosis are also demonstrated at other levels as described above.
== END 2022-12-12 13:46 | disposition home or self-care (01) ==
LOC: HO.MRI 13:45
PROVIDERS: Visit Provider Internal Medicine
DX: S39.012D Strain of muscle, fascia and tendon of lower back, subsequent encounter (principal)
CPT/HCPCS: 72148

== ENCOUNTER → 2022-12-18 11:38 | Outpatient (BNVA) | payer OTHER, SELFPAY | PROVIDERS: Visit Provider Internal Medicine | DX: S34.2 Injury of nerve root of lumbar and sacral spine (principal); X58.XXXD Exposure to other specified factors, subsequent encounter | CPT/HCPCS: 99213 ==

== ENCOUNTER → 2023-01-15 09:42 | Outpatient (BNVA) | payer OTHER, SELFPAY | PROVIDERS: Visit Provider Internal Medicine | DX: S34.2 Injury of nerve root of lumbar and sacral spine (principal); X58.XXXD Exposure to other specified factors, subsequent encounter | CPT/HCPCS: 99213 ==

== ENCOUNTER → 2023-02-12 09:35 | Outpatient (BNVA) | payer OTHER, SELFPAY | PROVIDERS: Visit Provider Internal Medicine | DX: S34.2 Injury of nerve root of lumbar and sacral spine (principal); X58.XXXD Exposure to other specified factors, subsequent encounter | CPT/HCPCS: 99213 ==

== ENCOUNTER 2023-02-20 19:56 | Emergency (ER) | payer OTHER, SELFPAY ==
--- NOTE | 2023-02-20 20:01 | ED.GENADULT ---
HPI - General Adult General Chief complaint: Skin/Abscess/Foreign Body Stated complaint: cyst left buttocks Time Seen by Provider: 02/20/23 22:06 Source: patient Mode of arrival: ambulatory Limitations: no limitations History of Present Illness HPI narrative: 32-year-old male who presents emergency department for evaluation of abscess to his left buttocks area. Patient states that he has had multiple abscesses in this area and they keep recurring. He states he has had 2 surgeries to the area is not stop the reaccumulation of abscesses. He states that 3 days prior he felt a little bit of pain in his left buttocks area. The pain got progressively worse and he noted an area of swelling consistent with an abscess. He states that he had 1 day of fever and chills but this resolved. Patient states the pain got more severe to the point where he could not sit therefore came to the emergency department for evaluation. Related Data Previous Rx's Medication Instructions Recorded cyclobenzaprine 10 mg tablet 10 mg PO TID PRN muscle pain or 01/10/22 spasm #20 tabs lisinopril 10 mg tablet 10 mg PO DAILY 30 days #30 tabs 01/10/22 ketorolac 10 mg tablet 10 mg PO Q6H PRN pain 5 days #20 01/19/22 tabs cyclobenzaprine 10 mg tablet 10 mg PO TID PRN muscle spasm #14 09/18/22 tabs ibuprofen 800 mg tablet 800 mg PO Q8H PRN fever or pain 09/18/22 #14 tabs lidocaine 5 % topical patch 1 patch topical DAILY #15 ea 09/18/22 cephalexin 500 mg capsule 500 mg PO QID 5 days #20 caps 02/20/23 oxycodone 5 mg tablet 5 mg PO Q6H PRN pain #14 tabs 02/20/23 Allergies Allergy/AdvReac Type Severity Reaction Status Date / Time No Known Allergies Allergy Unverified 05/05/20 19:20 [No Known Allergies*] Review of Systems Review of Systems: Yes all other systems are reviewed and are negative [facility] Past Medical History [facility] Narrative: Past medical history: Hypertension, with her abscesses to the left buttocks area. Social history: He smokes cigarettes. He denies alcohol use. He denies injection drug use. Social History Social History Smoked in Last 30 Days: Yes Use of substances other than those prescribed or required for medical reasons: No Advance Directives: No Advance Directives Information Provided: Yes Physical Exam ED Vital Signs: Vital Signs - 24 hr 02/20/23 20:02 02/20/23 22:01 Temperature 97.3 F 98.8 F Pulse Rate 82 62 Respiratory Rate 18 18 Blood Pressure 164/106 H 145/91 H Pulse Oximetry 98 98 Oxygen Delivery Method Room Air Room Air BMI result Body Mass Index 29.6 Vital signs were significant for elevated blood pressure of 164/106-this could be secondary to pain or due to his essential hypertension. General: Awake, alert, male patient, pleasant, cooperative, no distress, answers all questions appropriately Skin call Evaluation of the patient's of buttocks area revealed a 3 x 3 cm flocculent area consistent to an abscess in the left but cleft. The area is not erythematous but it is warm to the touch. Area is very painful to touch as well. Course Course Course Narrative: RME- 32 year old male presents for evaluation of a painful lump to his buttocks. Reports history of similar requiring drainage. Not visualized in triage Procedures Abscess I/D Site: other (Buttocks) Side (if applicable): left Local Anesthetic: lidocaine 1% Amount of anesthesia used (mL): 5 Technique: incised with blade Amount of fluid expressed (mL): 30 Sent for culture/gram staining?: No Irrigation: No Packing used?: none Medical Decision Making Medical Decision Making MDM Narrative: 32-year-old male who presents emergency department for evaluation of abscess to his left buttocks area. Patient states that he has had multiple abscesses in this area and they keep recurring. Exam was consistent with a 3 x 3 cm abscess. Differential Diagnosis Differential Diagnoses: The differential diagnosis associated with the presentation includes Differential includes but is not limited to cellulitis, abscess, hematoma Admission/Observation I did discuss the incision and drainage procedure with the patient. He was very familiar with the procedure and requested that I do not put packing into the wound since he states this is been very painful in the past specially when he tries to remove it. He did understand that this could make the abscess reoccurred a given his request I did not packed the wound. The skin was prepped with Betadine and then anesthetized with 1% lidocaine x5 mL. I used a number all 11 blade scalpel to incise the wound, there was a small amount of pus that came out initially and approximately 30 mL of dark red blood was expressed from the abscess cavity. A gauze dressing was applied. Patient was given ibuprofen 400 mg orally, oxycodone 5 mg orally and Keflex 500 mg orally. He was given printed and verbal instructions and discharged home. He was prescribed oxycodone and Keflex. Prescription Management I considered prescription management with: Pain Medication and Antibiotic Chronic Conditions Patient?s care impacted by: Hypertension Discharge Plan Discharge Clinical Impression: Abscess of skin or subcutaneous tissue Patient Disposition: Home, Self-Care Instructions: Abscess (ED), Incision and Drainage (ED) Additional Instructions: Your abscess had a small amount of pus in it, it was mainly filled with blood. I did not put any packing in the wound . Apply warm compress or soak and a warm tub 3 to 4 times a day to increase the blood flow to the area and help the healing process. Take Keflex (cephalexin) 500 mg pills, 1 pill 3 times a day for 7 days. Take ibuprofen 200 mg pills, 2 pills every 6 hours as needed for pain. Take Tylenol (acetaminophen) 500 mg pills, 2 pills every 6 hours as needed for pain. For pain not relieved by ibuprofen or Tylenol take oxycodone 5 mg pills, 1 pill every 4 hours as needed for pain. Do not drive or work while taking this medication since they can cause sleepiness. Oxycodone is a narcotic medication that can be addicting. If you are concerned about addiction you can ask the pharmacist for less pills or do not get this prescription filled. Follow-up with your doctor in 2 days. Please return to the emergency department if your symptoms get worse or if you develop any symptoms that are concerning to you. Prescriptions: New cephalexin 500 mg capsule 500 mg PO QID 5 Days Qty: 20 0RF oxycodone 5 mg tablet 5 mg PO Q6H PRN (Reason: pain) Qty: 14 0RF Rx Instructions: Patient may request partial refill; Partial Fill upon patient request. No Action cyclobenzaprine 10 mg tablet 10 mg PO TID PRN (Reason: muscle pain or spasm) Qty: 20 0RF lisinopril 10 mg tablet 10 mg PO DAILY 30 Days Qty: 30 0RF cyclobenzaprine 10 mg tablet 10 mg PO TID PRN (Reason: muscle spasm) Qty: 14 0RF ibuprofen 800 mg tablet 800 mg PO Q8H PRN (Reason: fever or pain) Qty: 14 0RF lidocaine 5 % adhesive patch,medicated 1 patch topical DAILY Qty: 15 0RF Rx Instructions: leave on most painful area for up to 12 hrs ketorolac 10 mg tablet 10 mg PO Q6H PRN (Reason: pain) 5 Days Qty: 20 0RF Rx Instructions: Patient received Toradol in the emergency room.
[2023-02-20 20:02] VITALS: BP 164/106; PULSE 82; RESP 18; TEMP 36.3; O2SAT 98; BMI 29.6
[2023-02-20 22:01] VITALS: BP 145/91; PULSE 62; RESP 18; TEMP 37.1; O2SAT 98
--- NOTE | 2023-02-20 22:02 | MHC.EDTECH ---
Hourly rounding completed,vitals taken and pt is resting on stretcher at this time. call curiel is within reach.
--- NOTE | 2023-02-20 22:45 | PC.NURSE ---
vss. pt calm and cooperative. pt medicated according to mar. pt to provide ride home. pt ambulatory at discharge. adult basic education manager dressed abscess site. pt provided with discharge packet. pt verbalized understanding of discharge plan
== END 2023-02-20 22:46 | disposition home or self-care (01) ==
PROVIDERS: Emergency Provider Emergency Medicine Emergency Medical Services
DX: L02.31 Cutaneous abscess of buttock (principal)
CPT/HCPCS: 10060; 99284

== ENCOUNTER 2023-04-15 07:18 | Emergency (ER) | payer OTHER, SELFPAY ==
[2023-04-15 07:32] VITALS: BP 175/114; PULSE 94; RESP 16; TEMP 36.1; O2SAT 96; BMI 29.3
[2023-04-15 07:45] LABS: MANUAL DIFF FLAG NO
[2023-04-15 07:50] LABS: Basophils Percent Auto 0.2 % (0-2); Eosinophils Absolute Auto 0.2 X10*3/uL (0.0-0.4); Eosinophils Percent Auto 2.2 % (0-4); Hematocrit 46.8 % (42.0-52.0); Hemoglobin 15.1 g/dl (14.0-18.0); Imm Gran Abs Auto 0.02 X10*3/uL (0.00-0.03); Imm Gran Pct Auto 0.2 % (0.0-0.4); Lymphocytes Absolute Auto 3.1 X10*3/uL (1.2-4.9); Lymphocytes Percent Auto 32.9 % (20-40); Mean Corpuscular HGB Conc 32.3 g/dl (31.0-36.0); Mean Corpuscular Hemoglobin 25.9 pg (27.0-33.0); Mean Corpuscular Volume 80.3 fL (80.0-98.0); Mean Platelet Volume 9.8 fL (9.4-12.4); Monocytes Percent Auto 10.2 % (2-11); Neutrophils Absolute Auto 5.1 x10*3/uL (2.0-8.3); Neutrophils Percent Auto 54.3 % (45-73); Platelet Count 278 X10*3/uL (160-400); Red Blood Count 5.83 X10*6/uL (4.60-5.80); Red Cell Distribution Width 14.1 % (11.0-16.0); White Blood Count 9.4 X10*3/uL (4.8-10.8)
[2023-04-15 08:02] LABS: Alanine Aminotransferase 26 U/L (0-40); Albumin Level 4.7 g/dL (3.5-5.0); Alkaline Phosphatase 73 U/L (39-117); Anion Gap 12 (12-20); Aspartate Amino Transferase 18 U/L (5-37); Bilirubin Total 0.7 mg/dL (0.0-1.0); Blood Urea Nitrogen 8 mg/dL (9-16); Calcium 10.1 mg/dL (8.4-10.2); Carbon Dioxide 25 mmol/L (22-29); Chloride 107 mmol/L (96-108); Creatinine Clr Calc Pharmacy 156.6; Estimated Glomerular Filt Rate > 60; Glucose Random 122 mg/dL (60-115); Sodium 140 mmol/L (135-145); Total Protein 8.1 g/dL (6.5-8.0)
--- NOTE | 2023-04-15 08:03 | ED.GENADULT ---
HPI - General Adult General Chief complaint: General Medical Stated complaint: cyst on butt Time Seen by Provider: 04/15/23 08:03 Source: patient and RN notes reviewed Mode of arrival: ambulatory Limitations: no limitations History of Present Illness HPI narrative: This is a 32-year-old male, with a past medical history of asthma, presenting to the emergency department with complaints of abscess to his left buttocks area. He states that over the last 3 days he has noticed some slight pain with increased swelling and tenderness. Patient has had multiple abscesses in this area which keeps reoccurring, most recent incision and drainage was performed on February 20, 2023 here at [facility] [place]. He denies any fevers, chills, abdominal pain, or diarrhea. At that time, patient refused to have abscess packed given significant pain with packing. Patient has had 2 surgeries to this area, last surgery around 3 years ago, he also admits that he has had this region incised around 25 times. No other complaints or concerns at this time. MD complaint: Cyst, left buttocks Onset (ago): day(s) Location: buttocks Radiation: non-radiation Severity: moderate Quality: aching Pain Consistency: constant Relieving factors: none Exacerbating factors: none Associated symptoms: denies other symptoms Treatments prior to arrival: none Related Data Previous Rx's Medication Instructions Recorded cyclobenzaprine 10 mg tablet 10 mg PO TID PRN muscle pain or 01/10/22 spasm #20 tabs lisinopril 10 mg tablet 10 mg PO DAILY 30 days #30 tabs 01/10/22 ketorolac 10 mg tablet 10 mg PO Q6H PRN pain 5 days #20 01/19/22 tabs cyclobenzaprine 10 mg tablet 10 mg PO TID PRN muscle spasm #14 09/18/22 tabs ibuprofen 800 mg tablet 800 mg PO Q8H PRN fever or pain 09/18/22 #14 tabs lidocaine 5 % topical patch 1 patch topical DAILY #15 ea 09/18/22 cephalexin 500 mg capsule 500 mg PO QID 5 days #20 caps 02/20/23 oxycodone 5 mg tablet 5 mg PO Q6H PRN pain #14 tabs 02/20/23 cephalexin 500 mg capsule 500 mg PO QID 5 days #20 caps 04/15/23 Allergies Allergy/AdvReac Type Severity Reaction Status Date / Time No Known Allergies Allergy Unverified 04/15/23 07:31 [No Known Allergies*] Review of Systems Review of Systems: Yes all other systems are reviewed and are negative Constitutional: Constitutional: Reports as per [facility] Social History Social History Advance Directives: No Advance Directives Information Provided: No Physical Exam ED Vital Signs: Vital Signs - 24 hr 04/15/23 07:32 Temperature 97 F Pulse Rate 94 Respiratory Rate 16 Blood Pressure 175/114 H Pulse Oximetry 96 BMI result Body Mass Index 29.3 Const General: cooperative, comfortable and no acute distress Orientation/consciousness: patient oriented x3 Limitations: no limitations HENMT Head: Yes normal to inspection, Yes normocephalic and Yes atraumatic Ears: hearing grossly normal bilaterally General nose exam: Normal external nose present Face and sinus: Yes normal facial exam Mouth: Normal oral and palatal mucosa present, oropharynx normal and moist mucous membranes Throat: Yes posterior oropharynx normal Eyes General: appearance normal, both eyes and all related structures Eyelids: Yes eyelids normal Conjunctivae: conjunctivae normal Sclerae: sclerae normal Pupils: Equal, round and reactive pupils present EOM: EOMs intact bilaterally Neck Neck: Yes normal visual inspection, Yes full ROM and Yes no lymphadenopathy Lymphatic: no lymphadenopathy noted Chest Chest palpation & inspection: normal inspection of the chest Resp Effort & Inspection: normal respiratory effort and able to speak in complete sentences Auscultation: clear to auscultation bilaterally, no crackles, no rales, no rhonchi and no wheezes Cardio Rate: regular rate Rhythm: regular rhythm Heart sounds: S1 normal heart sound present and S2 normal heart sound present GI Inspection: Yes normal to inspection Skin Other: Left buttocks, there is a 3 x 3 fluctuant area, not erythematous but warm to touch. Area is very painful Neuro General: patient oriented x3 and moves all extremities Cranial nerves: Yes Equal, round and reactive pupils present Extrem General: Yes normal to inspection Right upper extremity: normal to inspection Left upper extremity: normal to inspection Right lower extremity: normal to inspection Left lower extremity: normal to inspection Course Reevaluation(s) Reevaluation #1: Incision and drainage performed, see procedure note. Patient tolerated procedure well without any complications or concerns. Patient advised to return in 3 days for wound check. Will discharge patient on course of Keflex, advised to keep a close eye on his symptoms. Advised to return with any new or worsening symptoms. Patient also given referral to the general surgeons as this is a recurrent abscess that likely needs surgical intervention. Advised to call today to make an appointment. Patient understands and agrees with plan. Patient stable for discharge. Time: 08:53 Procedures Abscess I/D Site: other (buttocks) Side (if applicable): left Local Anesthetic: lidocaine 1% Amount of anesthesia used (mL): 4 Technique: incised with blade Amount of fluid expressed (mL): 30 Sent for culture/gram staining?: No Irrigation: No Packing used?: iodoform Medical Decision Making Medical Decision Making [facility] Narrative: 32-year-old male presenting to the emergency department for evaluation of left buttocks abscess. He has had multiple abscesses in the area but they keep recurring. On arrival, patient's blood pressure 175/114 likely secondary to pain. Patient is afebrile. Patient is nontoxic-appearing. Differential diagnoses includes cellulitis, abscess, hematoma. Exam consistent with a 3 x 3 cm fluctuant abscess. Basic labs were ordered out in triage, patient has no evidence of leukocytosis, H&H is stable. Given area of fluctuance, would benefit from incision and drainage. Patient given consent for procedure. Differential Diagnosis Differential Diagnoses: The differential diagnosis associated with the presentation includes See above Admission/Observation Consideration of admission/observation: Escalation of care including admission/observation considered I discussed incision and drainage with the patient. He is very familiar with this procedure and upon review of his last medical record patient did not want the abscess to be packed. I had this discussion with patient and he states that he is okay having the packing placed. I discussed that this is likely a better alternative as this will help with healing process. Patient understands and agrees with plan. Lab Data [facility] Lab Attestation statement: I reviewed the patient's lab results. See above 04/15/23 07:41 04/15/23 07:41 Labs: Lab Results 04/15/23 04/15/23 Range/Units 07:41 07:41 WBC 9.4 (4.8-10.8) X10*3/uL RBC 5.83 H (4.60-5.80) X10*6/uL Hgb 15.1 (14.0-18.0) g/dl Hct 46.8 (42.0-52.0) % MCV 80.3 (80.0-98.0) fL MCH 25.9 L (27.0-33.0) pg MCHC 32.3 (31.0-36.0) g/dl RDW 14.1 (11.0-16.0) % Plt Count 278 (160-400) X10*3/uL MPV 9.8 (9.4-12.4) fL Immature Gran % (Auto) 0.2 (0.0-0.4) % Neut % (Auto) 54.3 (45-73) % Lymph % (Auto) 32.9 (20-40) % Gove % (Auto) 10.2 (2-11) % Eos % (Auto) 2.2 (0-4) % Baso % (Auto) 0.2 (0-2) % Lymph # (Auto) 3.1 (1.2-4.9) X10*3/uL Gove # (Auto) 1.0 (0.1-1.2) X10*3/uL Eos # (Auto) 0.2 (0.0-0.4) X10*3/uL Baso # (Auto) 0.0 (0.0-0.2) X10*3/uL Abs Immat Gran (auto) 0.02 (0.00-0.03) X10*3/uL Absolute Neuts (auto) 5.1 (2.0-8.3) x10*3/uL Absolute Nucleated RBC 0.000 (0.0-0.012) X10*3/uL Nucleated RBC % (auto) 0.0 (0.0-0.2) /100WBC Sodium 140 (135-145) mmol/L Potassium 4.0 (3.3-5.1) mmol/L Chloride 107 (96-108) mmol/L Carbon Dioxide 25 (22-29) mmol/L Anion Gap 12 (12-20) BUN 8 L (9-16) mg/dL Creatinine 0.83 (0.5-1.4) mg/dL Estim Creat Clear Calc 156.6 Estimated GFR > 60 Random Glucose 122 H (60-115) mg/dL Calcium 10.1 (8.4-10.2) mg/dL Total Bilirubin 0.7 (0.0-1.0) mg/dL AST 18 (5-37) U/L ALT 26 (0-40) U/L Alkaline Phosphatase 73 (39-117) U/L Total Protein 8.1 H (6.5-8.0) g/dL Albumin 4.7 (3.5-5.0) g/dL Discharge Plan Discharge Clinical Impression: Abscess Patient Disposition: Home, Self-Care Instructions: Abscess (ED), Abscess Follow-up (ED), Incision and Drainage (ED) Additional Instructions: We drained the abscess today, there was a moderate amount of pus expressed from the wound. I placed packing in the wound, please return in 3 days for a wound check. You may apply warm compresses to the area to increased blood flow to help the healing process. Please take prescribed antibiotic as directed. Finish the entire course even if your feeling better. You may take ibuprofen or Tylenol as directed as needed for pain. I am giving your referral to a surgeon as you has had recurrent abscesses in the same area. Please call today to make an appointment. If any new or worsening symptoms occur including but not limited to worsening pain, fevers, chills, worsening swelling, please return for re-evaluation. Prescriptions: New cephalexin 500 mg capsule 500 mg PO QID 5 Days Qty: 20 0RF No Action cyclobenzaprine 10 mg tablet 10 mg PO TID PRN (Reason: muscle pain or spasm) Qty: 20 0RF lisinopril 10 mg tablet 10 mg PO DAILY 30 Days Qty: 30 0RF cyclobenzaprine 10 mg tablet 10 mg PO TID PRN (Reason: muscle spasm) Qty: 14 0RF ibuprofen 800 mg tablet 800 mg PO Q8H PRN (Reason: fever or pain) Qty: 14 0RF lidocaine 5 % adhesive patch,medicated 1 patch topical DAILY Qty: 15 0RF Rx Instructions: leave on most painful area for up to 12 hrs ketorolac 10 mg tablet 10 mg PO Q6H PRN (Reason: pain) 5 Days Qty: 20 0RF Rx Instructions: Patient received Toradol in the emergency room. cephalexin 500 mg capsule 500 mg PO QID 5 Days Qty: 20 0RF oxycodone 5 mg tablet 5 mg PO Q6H PRN (Reason: pain) Qty: 14 0RF Rx Instructions: Patient may request partial refill; Partial Fill upon patient request. Referrals: [facility] General Surgeons [Provider Group]
[2023-04-15] MEDS: Lidocaine HCl 1 % MPF 5 ML VIAL INFILTRATI (09:02)
== END 2023-04-15 09:22 | disposition home or self-care (01) ==
PROVIDERS: Emergency Provider Emergency Medicine
DX: L02.31 Cutaneous abscess of buttock (principal); Z79.899 Other long term (current) drug therapy
CPT/HCPCS: 10060; 36415; 80053; 85025; 99282; 99284

== ENCOUNTER → 2025-01-25 10:21 | Outpatient (BNVA) | payer OTHER, SELFPAY | PROVIDERS: Visit Provider Physician Assistant Medical | DX: S00.412A Abrasion of left ear, initial encounter (principal); T16.2XXA Foreign body in left ear, initial encounter; W44.F4XA Insect entering into or through a natural orifice, initial encounter; W45.8XXA Other foreign body or object entering through skin, initial encounter; Y93.89 Activity, other specified; Y92.89 Other specified places as the place of occurrence of the external cause; Y99.0 Civilian activity done for income or pay | CPT/HCPCS: 99203 ==

== ENCOUNTER → 2025-01-27 13:58 | Outpatient (BNVA) | payer OTHER, SELFPAY | PROVIDERS: Visit Provider Physician Assistant Medical | DX: S00.412D Abrasion of left ear, subsequent encounter (principal); T16.2XXD Foreign body in left ear, subsequent encounter; W45.8XXD Other foreign body or object entering through skin, subsequent encounter; W44.F Objects of natural or organic material entering into or through a natural orifice | CPT/HCPCS: 99213 ==